=== PATIENT | male | born 1970 | race Caucasian/White ===

== ENCOUNTER 2017-11-17 08:40 | Observation (INO) ==
[2017-11-17 09:13] LABS: ABG Base Excess 18 mEq/L (-2 to 3); ABG HCO3 50 mEq/L (21-27); ABG Oxygen Saturation 88 % (95-98); ABG PCO2 97 mmHg (35-45); ABG PH 7.32 pH Units (7.32-7.45); ABG PO2 64 mmHg (85-104); ABG TCO2 53 mEq/L (20-26)
[2017-11-17 09:31] LABS: Basophils % 0.5 %; Eosinophils % 0.3 %; Hematocrit 43.2 % (37.5-50.1); Hemoglobin 11.8 g/dL (12.9-16.9); Immature Granulocytes % 0.3 % (0-4); Lymphocytes # 0.6 K/mcL (0.6-4.6); Lymphocytes % 9.7 %; Mean Corpuscular HGB Conc 27.3 g/dL (31.6-35.5); Mean Corpuscular Hemoglobin 30.7 pg (28.0-33.3); Mean Corpuscular Volume 112.5 fL (83.0-100.0); Mean Platelet Volume 11.1 fL (9.4-12.4); Monocytes # 0.4 K/mcL (0.0-1.3); Monocytes % 5.5 %; Neutrophils # 5.5 K/mcL (1.6-8.9); Platelet Count 130 K/mcL (140-400); Red Blood Count 3.84 M/mcL (4.19-5.50); Segmented Neutrophils % 83.7 %
[2017-11-17 09:40] LABS: Prothrombin Time 11.4 Seconds (9.4-12.1)
[2017-11-17 09:40] LABS: VBG Base Excess 18 mEq/L; VBG Chloride 96 mEq/L (98-107); VBG Glucose 181 mg/dl (65-95); VBG HCO3 46 mEq/L (21-27); VBG Oxygen Saturation 84 %; VBG PCO2 69 mmHg (41-51); VBG PH 7.43 pH Units (7.32-7.42); VBG PO2 50 mmHg (25-50); VBG Total CO2 48 mEq/L
[2017-11-17 09:43] LABS: Activated Partial Thrombo Time 29.7 Seconds (26.0-36.0)
[2017-11-17 10:02] LABS: Troponin I < 0.03 ng/mL (< 0.04)
[2017-11-17 10:08] LABS: VBG Creatinine 0.62 mg/dL (0.72-1.25)
--- NOTE | 2017-11-17 10:14 | Emergency Department Note ---
Disposition Clinical Impression: Acute exacerbation of chronic obstructive airways disease, Hypoxia Disposition: Admitted As Inpatient Condition: Undetermined Time of Disposition: 11:50 (Dr Hanson accepted him ) SOB HPI - General Chief Complaint: ED Shortness of Breath/Dyspnea Stated Complaint: trach pt, low 02 sat, shortness of breath Source: EMS Mode of arrival: EMS Limitations: no limitations Nursing Notes Reviewed: Yes Vital Signs Reviewed: Yes - History of Present Illness Patient is a pleasant with past medical history significant for HTN, COPD, trach dependent and alcoholic who is presenting to [facility] Emergency Room with a chief complaint off respiratory distress. He was sat at 30% earlier at 7: 30 am ant the SNF per his nurse practitioner and was suctioned and given Duoneb so his sat went up to 80s. He was still i hypoxia. Per SNF he refuses wearing vent at night and actiually declined here in the ER. He has no other symptoms and per SNF there was unremarkable events other than the incidental hypoxia. Patient denies any fever or chills. Pt also denies any eye pain or visual disturbances. There is no sore throat or facial or nasal congestion. There is no chest pain or racing heart. There is no abdominal pain, nausea, vomiting or diarrhea. No dysuria or flank pain. There is no muskulo-skeletal pain, arthralgia or back pain. Patient also denies rash or pruritus. There is no neurological manifestations, no headache, no vertigo or weakness. The patient also denies any depression, hallucinations and there are no homicidal or suicidal ideations. There is no polyuria or polydipsia. There is no easy bruising or bleeding. Review of other systems is otherwise negative except above. Pt Subjective Complaint: shortness of breath Onset (ago): hour(s) Severity: moderate Improves with: oxygen Worsens with: nothing Known history of: COPD Associated symptoms: Reports: denies other symptoms Treatment prior to arrival: oxygen - Related Data Home Medications Medication Instructions Recorded Confirmed Aspirin [Ecotrin] 325 mg PO DAILY 11/17/17 11/17/17 Atorvastatin [Lipitor] 80 mg PO HS 11/17/17 11/17/17 Docusate Sodium [Diocto] 30 mg PO TID 11/17/17 11/17/17 Escitalopram Oxalate 5 mg PO DAILY 11/17/17 11/17/17 Folic Acid 1 mg PO DAILY 11/17/17 11/17/17 Gabapentin [Gralise] 600 mg PO TID 11/17/17 11/17/17 Ipratropium/Albuterol Neb [Duoneb] 3 ml IH Q6HR 11/17/17 11/17/17 Thiamine HCl [Vitamin B-1] 100 mg PO DAILY 11/17/17 11/17/17 Tramadol HCl [Ultram] 50 mg PO TID PRN 11/17/17 11/17/17 Allergies Allergy/AdvReac Type Severity Reaction Status Date / Time No Known Allergies Allergy Verified 11/17/17 08:41 All systems ED: reviewed and negative except as stated. Review of Systems: As Per HPI Constitutional: Denies: fever, chills, weakness Eyes: Denies: eye pain, eye discharge, vision change ENT ED: Denies: ear pain, throat pain, dental pain Cardiovascular: Denies: chest pain, palpitations, dyspnea on exertion Respiratory: Reports: cough, dyspnea Gastrointestinal: Denies: abdominal pain, nausea, vomiting Genitourinary: Denies: urgency, dysuria, frequency Musculoskeletal: Denies: back pain, neck pain, joint swelling Integumentary: Denies: rash, abrasion, lesions Neurological: Denies: headache, weakness, numbness Physical Exam - General Limitations: no limitations, language barrier, other (Wearing trach does not talk but nods his head) General appearance: alert, in distress - Head Head exam: atraumatic, normocephalic, normal inspection - Eye Eye exam: Present: normal appearance, PERRL, EOMI - Expanded Eye Exam Eyelids: bilateral: normal inspection Pupils: Left: reactive Sclera/Conjunctival: bilateral: normal inspection - ENT ENT exam: normal exam, normal oropharynx, mucous membranes moist - Expanded ENT Exam External ear exam: Present: normal external inspection Mouth exam: Present: normal external inspection Teeth exam: Present: normal inspection Throat exam: Present: normal inspection - Neck Neck exam: Present: normal inspection, full ROM, trachea midline, other (Has tracjh in place and retrieved a lot of secretions upon suctioning and Sat improved to 90s but remained fluctuant and retaining CO2) - Chest Chest inspection: Present: normal inspection, symmetric chest wall rise - Respiratory Respiratory exam: Present: normal lung sounds bilaterally, wheezes, other. Absent: prolonged expiratory phase (Scattered rhonchi but otherwise no true infiltraions and relatively CTA) - Cardiovascular Cardiovascular exam: Present: regular rate, normal rhythm, normal heart sounds - Abdominal Exam Abdominal exam: Present: soft, Non-Tender. Absent: tenderness, distention, guarding, rebound, rigidity - Extremities Exam Extremities exam: Present: normal inspection, full ROM. Absent: tenderness, pedal edema - Expanded Upper Extremity Exam Shoulder exam: Present: normal inspection, full ROM Arm exam: Present: normal inspection, full ROM Elbow exam: Present: normal inspection, full ROM Forearm/Wrist exam: Present: normal inspection, full ROM Hand exam: Present: normal inspection, full ROM Vascular exam: Normal: capillary refill, radial pulse - Expanded Lower Extremity Exam Hip/Pelvis exam: Present: normal inspection, full ROM Upper leg exam: Present: normal inspection, full ROM Knee exam: Present: normal inspection, full ROM Lower leg exam: Present: normal inspection, full ROM Ankle exam: Present: normal inspection, full ROM Foot/toe exam: Present: normal inspection, full ROM Neurovascular/Tendon exam: Absent: motor deficit, sensory deficit, tendon deficit - Back Exam Back exam: Present: normal inspection, full ROM. Absent: tenderness - Neurological Exam Neurological exam: Present: alert, oriented X3 - Expanded Neurological Exam Patient oriented to: Present: person, place, time Coma Scale Eye Opening: Spontaneous Coma Scale Motor Response: Obeys Commands Coma Scale Verbal Response: Oriented Coma Scale Total: 15 - Psychiatric Psychiatric exam: Present: normal affect, normal mood - Skin Skin exam: Present: warm, dry, intact, normal color Course Course Narrative: Cardiopulmonary monitoring Stat takes suction Stat ABG STAT DuoNeb STAT Steroids Vital Signs Temperature 97.6 F 11/17/17 08:42 Pulse Rate 77 11/17/17 08:42 Respiratory Rate 20 11/17/17 08:42 Blood Pressure 110/79 11/17/17 08:42 O2 Sat by Pulse Oximetry 60 11/17/17 08:42 Temperature 97.6 F 11/17/17 08:42 Pulse Rate 79 11/17/17 12:48 Respiratory Rate 20 11/17/17 12:48 Blood Pressure 151/73 11/17/17 12:48 O2 Sat by Pulse Oximetry 90 11/17/17 12:48 Oxygen Delivery Oxygen Delivery Trach Mask Shortness of Breath/Dyspnea - Differential Diagnosis Likely: congestive heart failure, pneumonia, asthma with exacerbation, pulmonary embolism - Medical Records Medical records reviewed: Yes I reviewed the patient's medical records. - Lab Data Lab results reviewed: Yes I reviewed the patient's lab results. Result diagrams: 11/17/17 09:20 11/17/17 09:20 Lab Results 11/17/17 11/17/17 11/17/17 Range/Units 09:07 09:20 09:20 WBC 6.6 (4.3-11.1) K/mcL RBC 3.84 L (4.19-5.50) M/mcL Hgb 11.8 L (12.9-16.9) g/dL Hct 43.2 (37.5-50.1) % MCV 112.5 H (83.0-100.0) fL MCH 30.7 (28.0-33.3) pg MCHC 27.3 L (31.6-35.5) g/dL RDW 15.0 H (11.5-14.5) % Plt Count 130 L (140-400) K/mcL MPV 11.1 (9.4-12.4) fL Immature Gran % 0.3 (0-4) % Seg Neutrophils % 83.7 % Lymphocytes % 9.7 % Monocytes % 5.5 % Eosinophils % 0.3 % Basophils % 0.5 % Neutrophils # 5.5 (1.6-8.9) K/mcL Lymphocytes # 0.6 (0.6-4.6) K/mcL Monocytes # 0.4 (0.0-1.3) K/mcL Eosinophils # 0.0 (0.0-0.6) K/mcL Basophils # 0.0 (0.0-0.2) K/mcL Platelet Estimate Normal (Normal) Hypochromasia Present A (Not Present) Anisocytosis 1+ A (Not Present) PT 11.4 (9.4-12.1) Seconds INR 1.0 APTT 29.7 (26.0-36.0) Seconds Sample Site R Radial ABG pH 7.32 (7.32-7.45) pH Units ABG pCO2 97 H* (35-45) mmHg ABG pO2 64 L (85-104) mmHg ABG HCO3 50 H (21-27) mEq/L ABG Total CO2 53 H (20-26) mEq/L ABG O2 Saturation 88 L (95-98) % ABG Base Excess 18 H (-2 to 3) mEq/L Bj Test N/A VBG pH (7.32-7.42) pH Units VBG pCO2 (41-51) mmHg VBG pO2 (25-50) mmHg VBG HCO3 (21-27) mEq/L VBG Total CO2 mEq/L VBG O2 Saturation % VBG Base Excess mEq/L VBG Lactic Acid (0.5-2.2) mmol/L O2 Delivery Device T Collar Inspired O2 4.0 (1-15=lpm [id number]=%) Venous Sodium (135-145) mEq/L Sodium (136-145) mEq/L Venous Potassium (3.5-5.5) mEq/L Potassium (3.5-5.1) mEq/L Venous Chloride (98-107) mEq/L Chloride (98-107) mEq/L Carbon Dioxide (23-29) mEq/L BUN (6-20) mg/dL Creatinine (0.70-1.30) mg/dL Venous Creatinine (0.72-1.25) mg/dL Est GFR ( Amer) (> 60) Est GFR (Non-Af Amer) (> 60) BUN/Creatinine Ratio (6-26) Glucose (70-105) mg/dL Whole Bld Glucose (65-95) mg/dL Calculated Osmolality (280-300) Calcium (8.6-10.3) mg/dL Troponin I (< 0.04) ng/mL B-Natriuretic Peptide (Less than 100) pg/mL Person Notif of Syd Guzman RN 11/17/17 11/17/17 11/17/17 Range/Units 09:20 09:20 09:36 WBC (4.3-11.1) K/mcL RBC (4.19-5.50) M/mcL Hgb (12.9-16.9) g/dL Hct (37.5-50.1) % MCV (83.0-100.0) fL MCH (28.0-33.3) pg MCHC (31.6-35.5) g/dL RDW (11.5-14.5) % Plt Count (140-400) K/mcL MPV (9.4-12.4) fL Immature Gran % (0-4) % Seg Neutrophils % % Lymphocytes % % Monocytes % % Eosinophils % % Basophils % % Neutrophils # (1.6-8.9) K/mcL Lymphocytes # (0.6-4.6) K/mcL Monocytes # (0.0-1.3) K/mcL Eosinophils # (0.0-0.6) K/mcL Basophils # (0.0-0.2) K/mcL Platelet Estimate (Normal) Hypochromasia (Not Present) Anisocytosis (Not Present) PT (9.4-12.1) Seconds INR APTT (26.0-36.0) Seconds Sample Site ABG pH (7.32-7.45) pH Units ABG pCO2 (35-45) mmHg ABG pO2 (85-104) mmHg ABG HCO3 (21-27) mEq/L ABG Total CO2 (20-26) mEq/L ABG O2 Saturation (95-98) % ABG Base Excess (-2 to 3) mEq/L Bj Test VBG pH 7.43 H (7.32-7.42) pH Units VBG pCO2 69 H (41-51) mmHg VBG pO2 50 (25-50) mmHg VBG HCO3 46 H (21-27) mEq/L VBG Total CO2 48 mEq/L VBG O2 Saturation 84 % VBG Base Excess 18 mEq/L VBG Lactic Acid 3.5 H (0.5-2.2) mmol/L O2 Delivery Device Inspired O2 (1-15=lpm [id number]=%) Venous Sodium 151 H 151 H (135-145) mEq/L Sodium 147 H (136-145) mEq/L Venous Potassium 4.1 4.1 (3.5-5.5) mEq/L Potassium 3.8 (3.5-5.1) mEq/L Venous Chloride 96 L 96 L (98-107) mEq/L Chloride 96 L (98-107) mEq/L Carbon Dioxide 42 H* (23-29) mEq/L BUN 11 (6-20) mg/dL Creatinine 0.50 L (0.70-1.30) mg/dL Venous Creatinine 0.62 L (0.72-1.25) mg/dL Est GFR ( Amer) > 60 (> 60) Est GFR (Non-Af Amer) > 60 (> 60) BUN/Creatinine Ratio 22 (6-26) Glucose 169 H (70-105) mg/dL Whole Bld Glucose 181 H 181 H (65-95) mg/dL Calculated Osmolality 307 H (280-300) Calcium 10.1 (8.6-10.3) mg/dL Troponin I < 0.03 (< 0.04) ng/mL B-Natriuretic Peptide (Less than 100) pg/mL Person Notif of Crit 11/17/17 Range/Units 10:00 WBC (4.3-11.1) K/mcL RBC (4.19-5.50) M/mcL Hgb (12.9-16.9) g/dL Hct (37.5-50.1) % MCV (83.0-100.0) fL MCH (28.0-33.3) pg MCHC (31.6-35.5) g/dL RDW (11.5-14.5) % Plt Count (140-400) K/mcL MPV (9.4-12.4) fL Immature Gran % (0-4) % Seg Neutrophils % % Lymphocytes % % Monocytes % % Eosinophils % % Basophils % % Neutrophils # (1.6-8.9) K/mcL Lymphocytes # (0.6-4.6) K/mcL Monocytes # (0.0-1.3) K/mcL Eosinophils # (0.0-0.6) K/mcL Basophils # (0.0-0.2) K/mcL Platelet Estimate (Normal) Hypochromasia (Not Present) Anisocytosis (Not Present) PT (9.4-12.1) Seconds INR APTT (26.0-36.0) Seconds Sample Site ABG pH (7.32-7.45) pH Units ABG pCO2 (35-45) mmHg ABG pO2 (85-104) mmHg ABG HCO3 (21-27) mEq/L ABG Total CO2 (20-26) mEq/L ABG O2 Saturation (95-98) % ABG Base Excess (-2 to 3) mEq/L Bj Test VBG pH (7.32-7.42) pH Units VBG pCO2 (41-51) mmHg VBG pO2 (25-50) mmHg VBG HCO3 (21-27) mEq/L VBG Total CO2 mEq/L VBG O2 Saturation % VBG Base Excess mEq/L VBG Lactic Acid (0.5-2.2) mmol/L O2 Delivery Device Inspired O2 (1-15=lpm [id number]=%) Venous Sodium (135-145) mEq/L Sodium (136-145) mEq/L Venous Potassium (3.5-5.5) mEq/L Potassium (3.5-5.1) mEq/L Venous Chloride (98-107) mEq/L Chloride (98-107) mEq/L Carbon Dioxide (23-29) mEq/L BUN (6-20) mg/dL Creatinine (0.70-1.30) mg/dL Venous Creatinine (0.72-1.25) mg/dL Est GFR ( Amer) (> 60) Est GFR (Non-Af Amer) (> 60) BUN/Creatinine Ratio (6-26) Glucose (70-105) mg/dL Whole Bld Glucose (65-95) mg/dL Calculated Osmolality (280-300) Calcium (8.6-10.3) mg/dL Troponin I (< 0.04) ng/mL B-Natriuretic Peptide 126 H (Less than 100) pg/mL Person Notif of Crit - Radiology Data Radiology results reviewed: Yes I reviewed the patient's radiology results. - EKG Data EKG attestation: Yes I reviewed and interpreted this EKG. EKG shows normal: Reports: sinus rhythm Rhythm: Reports: NSR
[2017-11-17 10:18] LABS: Anisocytosis 1+ (Not Present); Hypochromasia Present (Not Present); Platelet Estimate Normal (Normal)
[2017-11-17] MEDS ORDERED: Ipratropium/Albuterol Neb 3 ML IH ONE (10:22)
[2017-11-17] MEDS ORDERED: methylPREDNISolone 125 MG/2 ML VIAL IVP ONE (10:22)
[2017-11-17 10:57] LABS: BUN/Creatinine Ratio 22 (6-26); Blood Urea Nitrogen 11 mg/dL (6-20); Calcium 10.1 mg/dL (8.6-10.3); Carbon Dioxide 42 mEq/L (23-29); Chloride 96 mEq/L (98-107); Glucose 169 mg/dL (70-105); Osmolality,Calculated 307 (280-300); Potassium 3.8 mEq/L (3.5-5.1); Sodium 147 mEq/L (136-145); eGFR For African Americans > 60 (> 60); eGFR For Non-African Americans > 60 (> 60)
[2017-11-17] MEDS ORDERED: Acetaminophen 325 MG TABLET PO PRN ×2 (12:29→13:10)
[2017-11-17] MEDS ORDERED: Naloxone 0.4 MG/ML INJ IVP PRN ×2 (12:29→13:10)
[2017-11-17] MEDS ORDERED: Gabapentin 300 MG CAPSULE PO SCH (15:00)
[2017-11-17] MEDS ORDERED: Ipratropium/Albuterol Neb 3 ML IH SCH (16:00)
--- NOTE | 2017-11-17 16:53 | Internal Med History&Physical ---
Date of Encounter: 11/17/17 Time of Encounter: 16:30 Assessment and Plan (1) Acute exacerbation of chronic obstructive airways disease Current visit: Yes Status: Acute He was given Solu-Medrol in emergency room. Will order Rocephin and Zithromax with lactobacillus. Recheck labs in a.m. (2) Hypoxia Current visit: Yes Status: Acute Continue oxygen and nebulizer treatments. (3) Macrocytic anemia Current visit: Yes Status: Acute Will order workup in a.m. (4) Hyperlipidemia Current visit: Yes Status: Acute Continue Lipitor Qualifiers: Hyperlipidemia type: unspecified Qualified Code(s): E78.5 - Hyperlipidemia , unspecified (5) Edema Current visit: Yes Status: Acute Will decrease dose of Neurontin and prescribe Bumex. 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 Stanton is a 47 year old male was transferred from [facility] [place] after he was found to have hypoxemia and dyspnea. He was evaluated in emergency room and felt to have exacerbation of COPD. ABG showed acute on chronic elevation of PCO2. ER records report patient refuses to use ventilator at night time. He was admitted to [facility] floor for ongoing care needs. He has history of alcoholism and cannot give any reliable history. He does not know his age, length of stay at SNF, or duration of tracheostomy. Past Med Surg Social Fam HX - Past Medical History Medical history: COPD, hyperlipidemia, hypertension Additional medical history: resp failure. anemia. etoh abuse Psychiatric history: depression - Social History Smoking Status: Former smoker Drug use: unknown Internal Medicine - H&P: Meds Aspirin [Ecotrin] 325 mg PO DAILY 11/17/17 [History] Atorvastatin [Lipitor] 80 mg PO HS 11/17/17 [History] Docusate Sodium [Diocto] 30 mg PO TID 11/17/17 [History] Escitalopram Oxalate 5 mg PO DAILY 11/17/17 [History] Folic Acid 1 mg PO DAILY 11/17/17 [History] Gabapentin [Gralise] 600 mg PO TID 11/17/17 [History] Ipratropium/Albuterol Neb [Duoneb] 3 ml IH Q6HR 11/17/17 [History] Thiamine HCl [Vitamin B-1] 100 mg PO DAILY 11/17/17 [History] Tramadol HCl [Ultram] 50 mg PO TID PRN 11/17/17 [History] 3 Allergy/AdvReac Type Severity Reaction Status Date / Time No Known Allergies Allergy Verified 11/17/17 08:41 All Systems PM: A 10-system review of systems was performed and is negative for pertinent findings except as documented above in the HPI. Review of systems: Unobtainable from patient. - Constitutional Vitals: Temp Pulse Resp BP Pulse Ox 97.6 F 79 20 151/73 94 11/17/17 08:42 11/17/17 12:48 11/17/17 12:48 11/17/17 12:48 11/17/17 14:56 Exam: Gen.: He is a well-developed pale male lying in bed who appears in mild respiratory distress intermittently. He coughs occasionally during examination. HEENT: Head is atraumatic and normal cephalic. Eyes: EOMI. There is no scleral icterus. Mouth: Mucosa is moist. Neck: Supple and nontender. There is no thyromegaly or adenopathy noted. Tracheostomy is in place in the lower anterior neck area with oxygen mask covering the trach site. Heart: Regular without murmurs gallops or ectopics Lungs: He has few scattered rhonchi and upper airway secretions. Abdomen: Soft and nontender. No masses or guarding are noted. Extremities: He has 2+ edema of the dorsum of feet and lower anterior terrell bilaterally. Dorsalis pedis and posttibial pulses are not palpable. Neurologic: Mental status: He cannot phonate because of tracheostomy in place. He does not know answers to most questions I asked. He follows a few commands. Cranial nerves: Facial movements are symmetric. Forehead wrinkles bilaterally. Tongue protrudes midline. EOMI. Motor: He moves his arms well to random observation. No further neurologic testing is attempted. Skin: Warm and dry Internal Med - H&P Results - Labs CBC & Chem 7: 11/17/17 09:20 11/17/17 09:20
[2017-11-17] MEDS ORDERED: Albuterol 2.5 MG/3 ML NEBULIZER IH PRN (17:03)
[2017-11-17] MEDS ORDERED: cefTRIAXone 1,000 MG in Water for inj. (sterile) 20 ML 10 ML IVP SCH (18:00)
[2017-11-17] MEDS ORDERED: cefTRIAXone 1,000 MG in 0.9 % Sodium Chloride Mini Bag 100 ML IVPB SCH (18:00)
[2017-11-17] MEDS ORDERED: Azithromycin 500 MG in D5% in Water 250 ML IVPB SCH ×2 (18:00→22:00)
[2017-11-17] MEDS: Bumetanide 1 MG/4 ML VIAL IVP SCH (18:03)
[2017-11-17] MEDS: Lactobacillus 1 EACH CAP.SPRINK PO SCH (22:45)
[2017-11-17] MEDS: Gabapentin 400 MG CAPSULE PO SCH (22:45)
[2017-11-18 06:33] VITALS: BP 126/83
--- NOTE | 2017-11-18 07:03 | Electrocardiograph Report ---
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
[2017-11-18 07:25] LABS: Basophils % 0.1 %; Eosinophils % 0.1 %; Hematocrit 38.3 % (37.5-50.1); Hemoglobin 10.9 g/dL (12.9-16.9); Immature Granulocytes % 0.6 % (0-4); Lymphocytes # 1.6 K/mcL (0.6-4.6); Lymphocytes % 20.5 %; Mean Corpuscular HGB Conc 28.5 g/dL (31.6-35.5); Mean Corpuscular Hemoglobin 30.6 pg (28.0-33.3); Mean Corpuscular Volume 107.6 fL (83.0-100.0); Monocytes # 0.7 K/mcL (0.0-1.3); Monocytes % 8.6 %; Neutrophils # 5.5 K/mcL (1.6-8.9); Nucleated Red Blood Cells 0.4 /100 WBC (0); Platelet Count 190 K/mcL (140-400); Red Blood Count 3.56 M/mcL (4.19-5.50); Red Cell Distribution Width 15.2 % (11.5-14.5); Segmented Neutrophils % 70.1 %
[2017-11-18] MEDS: Bumetanide 1 MG/4 ML VIAL IVP SCH (08:11)
[2017-11-18 08:24] LABS: Alanine Aminotransferase 17 Units/L (7-52); Albumin 3.5 g/dL (3.5-5.7); Alkaline Phosphatase 79 Units/L (34-104); Aspartate Amino Transferase 19 Units/L (13-39); BUN/Creatinine Ratio 23 (6-26); Bilirubin,Total 0.4 mg/dL (0.3-1.0); Blood Urea Nitrogen 11 mg/dL (6-20); Calcium 9.8 mg/dL (8.6-10.3); Carbon Dioxide > 45 mEq/L (23-29); Chloride 95 mEq/L (98-107); Globulin 3.5 g/dL (2.4-3.5); Glucose 139 mg/dL (70-105); Osmolality,Calculated 306 (280-300); Potassium 3.8 mEq/L (3.5-5.1); Sodium 147 mEq/L (136-145); Thyroid Stimulating Hormone 0.566 mcIU/mL (0.340-5.600); eGFR For African Americans > 60 (> 60); eGFR For Non-African Americans > 60 (> 60)
[2017-11-18 08:43] LABS: Hypochromasia Present (Not Present)
[2017-11-18] MEDS ORDERED: Aspirin Enteric Coated 325 MG Tablet PO SCH (09:00)
[2017-11-18] MEDS ORDERED: Thiamine (B-1) 100 MG TABLET PO SCH (09:00)
[2017-11-18] MEDS ORDERED: Folic Acid 1 MG TABLET PO SCH (09:00)
[2017-11-18] MEDS ORDERED: Aspirin 81 MG TAB.CHEW PO SCH (09:00)
[2017-11-18 10:37] LABS: % Iron Saturation 11 % (20-55); Ferritin 82 ng/mL (20-250); Iron 43 mcg/dL (65-175); Transferrin 274 mg/dL (203-362)
--- NOTE | 2017-11-18 11:22 | Discharge Summary ---
Orders not resulted at time of discharge: Pending orders 11/18/17 07:17 Folate AM 0400 Vitamin B12 AM 0400 Date of Encounter: 11/18/17 Time of Encounter: 11:05 - Discharge Diagnosis (1) Acute exacerbation of chronic obstructive airways disease Priority: Primary Status: Acute (2) Hypoxia Priority: Secondary Status: Acute (3) Macrocytic anemia Priority: Secondary Status: Acute (4) Hyperlipidemia Priority: Secondary Status: Acute Qualifiers: Hyperlipidemia type: unspecified Qualified Code(s): E78.5 - Hyperlipidemia , unspecified (5) Edema Priority: Secondary Status: Acute Qualifiers: Edema type: unspecified Qualified Code(s): R60.9 - Edema, unspecified Hospital course: Mr. Stanton is a 47 year old male who was transferred from [facility] [place] after he was found to have hypoxemia and dyspnea. He was evaluated in emergency room and felt to have exacerbation of COPD. ABG showed acute on chronic elevation of PCO2. ER records report patient refuses to use ventilator at night time. He was admitted to [facility] for ongoing care needs. Initial orders were written by the emergency room physician. I saw him on November 17 and performed the history and physical. He was given Rocephin and Zithromax with lactobacillus and Solu-Medrol. He remained afebrile during his hospital stay. When I saw him on November 18 he appeared to be in no acute distress. Follow -up lab work showed WBC remaining normal with resolution of left shift on differential. He will be discharged back to the SNF and continue with antibiotic and probiotic for 3 additional days. Oxygen level could not be continuously monitored since patient would not leave equipment in place. Aspirin dose was decreased to 81 mg daily. Anemia testing showed iron 43, transferrin saturation 11%, transferrin 274, and ferritin 82. B12 and folate levels are pending at time of discharge. Neurontin was decreased to lessen edema. Bumex was given and there was improvement in edema by day of discharge. He will remain on this regimen at discharge. On November 18 he was stable for discharge back to [facility] [place]. - Time Spent with Patient Total time spent providing and/or coordinating discharge services: - Discharge Medications Prescriptions: Cefuroxime PO [Ceftin] 500 mg PO Q12HR 3 Days tablet Azithromycin [Zithromax] 250 mg PO DAILY 3 Days tablet Bumetanide [Bumex] 0.5 mg PO DAILY 365 Days tablet Gabapentin [Neurontin] 400 mg PO TID 30 Days #90 capsule Lactobacillus [Culturelle] 1 each PO BID 3 Days cap.sprink Home Medications: Atorvastatin [Lipitor] 80 mg PO HS 11/17/17 [History] Docusate Sodium [Diocto] 30 mg PO TID 11/17/17 [History] Escitalopram Oxalate 5 mg PO DAILY 11/17/17 [History] Folic Acid 1 mg PO DAILY 11/17/17 [History] Ipratropium/Albuterol Neb [Duoneb] 3 ml IH Q6HR 11/17/17 [History] Tramadol HCl [Ultram] 50 mg PO TID PRN 11/17/17 [History] Aspirin 81 mg PO DAILY tab.chew 11/18/17 [Rx] Azithromycin [Zithromax] 250 mg PO DAILY 3 Days tablet 11/18/17 [Rx] Bumetanide [Bumex] 0.5 mg PO DAILY 365 Days tablet 11/18/17 [Rx] Cefuroxime PO [Ceftin] 500 mg PO Q12HR 3 Days tablet 11/18/17 [Rx] Gabapentin [Neurontin] 400 mg PO TID 30 Days #90 capsule 11/18/17 [Rx] Lactobacillus [Culturelle] 1 each PO BID 3 Days cap.sprink 11/18/17 [Rx] Allergies/Adverse Reactions: 3 Allergy/AdvReac Type Severity Reaction Status Date / Time No Known Allergies Allergy Verified 11/17/17 08:41 Date of admission: 11/17/17 12:37 Primary care physician: Trino Thomas MD - Constitutional Vitals: Temp Pulse Resp BP Pulse Ox 98.6 F 101 18 126/83 98 11/18/17 06:31 11/18/17 06:31 11/18/17 06:31 11/18/17 06:31 11/18/17 06:31 - Patient Status Disposition: Transfer SNF Condition: Undetermined - Discharge Instructions Follow Up With: Trino Thomas MD [Primary Care Provider] - 1 week - Diet and Activity Activity: resume usual activities as tolerated Diet: advance to your usual diet
--- NOTE | 2017-11-18 11:30 | Physician Discharge Referral ---
ExtendedCare Referral Info Transfer To: [facility] Provider in Charge: Valentin Provider in Charge after Transfer: PCP (Trino Thomas M.D.) - Diagnosis (1) Acute exacerbation of chronic obstructive airways disease Priority: Primary Status: Acute (2) Hypoxia Priority: Secondary Status: Acute (3) Macrocytic anemia Priority: Secondary Status: Acute (4) Hyperlipidemia Priority: Secondary Status: Acute (5) Edema Priority: Secondary Status: Acute Prognosis: Fair - Transfer Medications Prescriptions: Cefuroxime PO [Ceftin] 500 mg PO Q12HR 3 Days tablet Azithromycin [Zithromax] 250 mg PO DAILY 3 Days tablet Bumetanide [Bumex] 0.5 mg PO DAILY 365 Days tablet Gabapentin [Neurontin] 400 mg PO TID 30 Days #90 capsule Lactobacillus [Culturelle] 1 each PO BID 3 Days cap.sprink Home Medications: Atorvastatin [Lipitor] 80 mg PO HS 11/17/17 [History] Docusate Sodium [Diocto] 30 mg PO TID 11/17/17 [History] Escitalopram Oxalate 5 mg PO DAILY 11/17/17 [History] Folic Acid 1 mg PO DAILY 11/17/17 [History] Ipratropium/Albuterol Neb [Duoneb] 3 ml IH Q6HR 11/17/17 [History] Tramadol HCl [Ultram] 50 mg PO TID PRN 11/17/17 [History] Aspirin 81 mg PO DAILY tab.chew 11/18/17 [Rx] Azithromycin [Zithromax] 250 mg PO DAILY 3 Days tablet 11/18/17 [Rx] Bumetanide [Bumex] 0.5 mg PO DAILY 365 Days tablet 11/18/17 [Rx] Cefuroxime PO [Ceftin] 500 mg PO Q12HR 3 Days tablet 11/18/17 [Rx] Gabapentin [Neurontin] 400 mg PO TID 30 Days #90 capsule 11/18/17 [Rx] Lactobacillus [Culturelle] 1 each PO BID 3 Days cap.sprink 11/18/17 [Rx] Allergies/Adverse Reactions: 3 Allergy/AdvReac Type Severity Reaction Status Date / Time No Known Allergies Allergy Verified 11/17/17 08:41 - Respiratory Orders Oxygen / L per min (Oxygen by trach mask to keep saturation greater than 90%.) Smoking Cessation: Smoking cessation has been advised. For more information, call the [place] Tobacco Quit Line at 2-371-TRYP-NOW. - Lab Orders Lab Orders: Other (include drug levels w/frequency) (CBC with differential, BMP , BNP peptide, magnesium level in 5 days) - Rehabiliation Orders Rehab Potential: Poor Rehab Orders: Evaluation for Physical Therapy, Evaluation for Occupational Therapy CERTIFICATION: I certify that the transfer of the above named patient to an Extended Care Facility is necessary for the continuing treatment of the diagnosis listed. The above information is true and accurate reflection of patient's current condition. Confidential - Redisclosure prohibited without a patient's written consent.
[2017-11-18] MEDS: Lactobacillus 1 EACH CAP.SPRINK PO SCH (12:16)
[2017-11-18] MEDS: Gabapentin 400 MG CAPSULE PO SCH (12:16)
[2017-11-18 15:11] LABS: Vitamin B12 284 pg/mL (250-1100)
[2017-11-18 15:14] LABS: Folate > 22.3 ng/mL (3.0-16.0)
== END 2017-11-18 13:23 ==
LOC: EMEROOPIK 08:40 → INPPIK 08:40
PROVIDERS: ADMIT Internal Medicine; ATTEND Internal Medicine

== ENCOUNTER 2017-12-05 21:09 | Inpatient (IN) ==
--- NOTE | 2017-12-05 22:10 | Emergency Department Note ---
Disposition Clinical Impression: Hypoxia, Hypercapnia Edema Qualifiers: Edema type: unspecified Qualified Code(s): R60.9 - Edema, unspecified Disposition: Admitted As Inpatient Condition: Good SOB HPI - General Chief Complaint: ED Shortness of Breath/Dyspnea Stated Complaint: difficulty breathing Time Seen by Provider: 12/05/17 21:20 Source: EMS, other (ECF report) Mode of arrival: EMS Limitations: altered mental status Nursing Notes Reviewed: Yes Vital Signs Reviewed: Yes - History of Present Illness Patient presents the ED from local ECF with report of difficulty breathing and low oxygen saturations. Per ECF report patient who has a tracheostomy tube and is normally on trach mask during the day and ventilator at night was found around 8:30 PM with his trach mask off, decreased responsiveness and initial oxygen saturations of 67%. The ECF staff assisted respirations with a BVM and oxygen with saturations improving into the 90s per EMS during transport. Patient responds to physical stimuli but is still lethargic on arrival. No other information was provided by ECF other than patient frequently refuses to be on the ventilator at night. Patient has history of acute on chronic respiratory failure resulting in his trach and oxygen requirements. - Related Data Home Medications Medication Instructions Recorded Confirmed Atorvastatin [Lipitor] 80 mg PO HS 11/17/17 12/05/17 Escitalopram Oxalate 5 mg PO DAILY 11/17/17 12/05/17 Folic Acid 1 mg PO DAILY 11/17/17 12/05/17 Ipratropium/Albuterol Neb [Duoneb] 3 ml IH Q6HR 11/17/17 11/29/17 Tramadol HCl [Ultram] 50 mg PO TID PRN 11/17/17 12/05/17 Docusate [Colace] 100 mg PO TID 12/05/17 12/05/17 Guar Gum [Nutrisource Fiber] 205 gm PO TID 12/05/17 12/05/17 Multivit-Min/Iron Fum/Folic AC 1 each PO DAILY 12/05/17 12/05/17 [Fmqae-Obsgwyw-Yxxdegoc Tablet] Scopolamine Patch [Transderm-Scop] 1.5 mg TD Q72H 12/05/17 12/05/17 Sennosides [Senna] 8.6 mg PO TID 12/05/17 12/05/17 Previous Rx's Medication Instructions Recorded Aspirin 81 mg PO DAILY tab.chew 11/18/17 Bumetanide [Bumex] 0.5 mg PO DAILY 365 Days tablet 11/18/17 Gabapentin [Neurontin] 400 mg PO TID 30 Days #90 capsule 11/18/17 Lactobacillus [Culturelle] 1 each PO BID 3 Days cap.sprink 11/18/17 Allergies Allergy/AdvReac Type Severity Reaction Status Date / Time No Known Allergies Allergy Verified 12/05/17 21:39 Limitations: ROS unobtainable due to patients medical condition Past Medical History - Past Medical History Medical history: Reports: COPD, GERD, hyperlipidemia, hypertension Psychiatric history: Reports: depression - Social History Smoking Status: Former smoker Alcohol use: Reports: unknown Drug use: Reports: unknown Physical Exam - General Limitations: altered mental status General appearance: lethargic - Head Head exam: normocephalic - Expanded Head Exam Head exam physicial: Present: contusion (R periorbital area), hematoma (R forehead) - Eye Eye exam: Present: normal appearance, PERRL, EOMI - ENT ENT exam: normal exam, normal oropharynx, mucous membranes dry - Neck Neck exam: Present: normal inspection, full ROM, trachea midline - Chest Chest inspection: Present: normal inspection, symmetric chest wall rise - Respiratory Respiratory exam: Present: normal lung sounds bilaterally - Cardiovascular Cardiovascular exam: Present: regular rate, normal rhythm, normal heart sounds - Abdominal Exam Abdominal exam: Present: soft, Non-Tender. Absent: tenderness, distention, guarding, rebound, rigidity - Extremities Exam Extremities exam: Present: normal inspection, full ROM, pedal edema (1-2+). Absent: tenderness - Back Exam Back exam: Present: normal inspection, full ROM. Absent: tenderness - Skin Skin exam: Present: warm, dry, intact, normal color Course Course Narrative: Patient presents to the ED with dyspnea and decreased oxygen saturations after being found with a straight collar off. Patient's oxygen saturations had improved with high flow O2 and BVM respirations during transport. Lungs are clear to auscultation on arrival. Trach was suctioned by respiratory staff without any secretions found. He was placed temporarily on the vent but kept pulling the tubing away. Will attempt to wean back to trach collar and obtain chest x-ray for further evaluation. - Reevaluation(s) Reevaluation #1: Patient's oxygen saturations dropped back 80s while on trach collar and he was placed back on the ventilator. ABG was obtained which showed both hypoxia and hypercapnia but a normal pH. EKG showed A. fib with occasional PVCs. Chest x- ray showed edema versus less likely infiltrate. Patient has known history of A. fib. Given this will check labs including BNP and troponin. Reevaluation #2: Patient's mentation improved while being on the ventilator. He denies any complaints. Repeat ABG shows improvement in his PO2 and PCO2 after adjustments were made to the ventilator including an increase in his PEEP and respiratory rate. Laboratory studies show a slightly elevated troponin. Patient has no chest pain. BNP is not elevated despite patient's visible edema. He was given a dose of Lasix. He will require admission for further treatment and monitoring. I spoke to the hospitalist on-call, Dr. Hanson, who has accepted the patient. Vital Signs Temperature 97.8 F 12/05/17 21:09 Pulse Rate 98 12/05/17 21:09 Respiratory Rate 14 12/05/17 21:09 Blood Pressure 141/43 12/05/17 21:09 O2 Sat by Pulse Oximetry 96 12/05/17 21:09 Temperature 97.8 F 12/05/17 21:09 Pulse Rate 68 12/06/17 01:36 Respiratory Rate 15 12/06/17 01:36 Blood Pressure 93/70 12/06/17 01:36 O2 Sat by Pulse Oximetry 99 12/06/17 01:36 Oxygen Delivery Oxygen Delivery Ventilator Shortness of Breath/Dyspnea - Differential Diagnosis Likely: acute exacerbation of chronic obstructive airways disease, congestive heart failure, pneumonia - Medical Records Medical records reviewed: Yes I reviewed the patient's medical records. - Lab Data Result diagrams: 12/05/17 23:10 12/05/17 23:10 Lab Results 12/05/17 12/05/17 12/05/17 Range/Units 23:00 23:10 23:10 WBC 10.8 (4.3-11.1) K/mcL RBC 4.20 (4.19-5.50) M/mcL Hgb 12.9 (12.9-16.9) g/dL Hct 44.6 (37.5-50.1) % MCV 106.2 H D (83.0-100.0) fL MCH 30.7 (28.0-33.3) pg MCHC 28.9 L (31.6-35.5) g/dL RDW 15.3 H (11.5-14.5) % Plt Count 216 (140-400) K/mcL MPV 10.6 (9.4-12.4) fL Immature Gran % 0.5 (0-4) % Seg Neutrophils % 78.0 % Lymphocytes % 15.2 % Monocytes % 5.4 % Eosinophils % 0.7 % Basophils % 0.2 % Neutrophils # 8.4 (1.6-8.9) K/mcL Lymphocytes # 1.6 (0.6-4.6) K/mcL Monocytes # 0.6 (0.0-1.3) K/mcL Eosinophils # 0.1 (0.0-0.6) K/mcL Basophils # 0.0 (0.0-0.2) K/mcL Platelet Estimate Normal (Normal) Large Platelets Present A (Not Present) Polychromasia 1+ A (Not Present) Hypochromasia Present A (Not Present) Basophilic Stippling 1+ A (Not Present) Anisocytosis 2+ A (Not Present) Macrocytosis Present A (Not Present) Stomatocytes 1+ A (Not Present) PT 10.5 (9.4-12.1) Seconds INR 0.9 Sample Site L Brach ABG pH 7.34 (7.32-7.45) pH Units ABG pCO2 78 H* (35-45) mmHg ABG pO2 62 L (85-104) mmHg ABG HCO3 42 H (21-27) mEq/L ABG Total CO2 44 H (20-26) mEq/L ABG O2 Saturation 88 L (95-98) % ABG Base Excess 11 H (-2 to 3) mEq/L Respiration Rate 12 O2 Delivery Device Adult Vent Blood Gas Modality ASSIST CONTROL Inspired O2 40.0 (1-15=lpm cc58-145=%) Tidal Volume 500 cc PEEP 5 cm H2O Sodium (136-145) mEq/L Potassium (3.5-5.1) mEq/L Chloride (98-107) mEq/L Carbon Dioxide (23-29) mEq/L BUN (6-20) mg/dL Creatinine (0.70-1.30) mg/dL Est GFR ( Amer) (> 60) Est GFR (Non-Af Amer) (> 60) BUN/Creatinine Ratio (6-26) Glucose (70-105) mg/dL Calculated Osmolality (280-300) Lactic Acid (0.5-2.2) mmol/L Calcium (8.6-10.3) mg/dL Troponin I (< 0.04) ng/mL B-Natriuretic Peptide (Less than 100) pg/mL Person Notif of Syd flannery rn 12/05/17 12/05/17 12/05/17 Range/Units 23:10 23:10 23:10 WBC (4.3-11.1) K/mcL RBC (4.19-5.50) M/mcL Hgb (12.9-16.9) g/dL Hct (37.5-50.1) % MCV (83.0-100.0) fL MCH (28.0-33.3) pg MCHC (31.6-35.5) g/dL RDW (11.5-14.5) % Plt Count (140-400) K/mcL MPV (9.4-12.4) fL Immature Gran % (0-4) % Seg Neutrophils % % Lymphocytes % % Monocytes % % Eosinophils % % Basophils % % Neutrophils # (1.6-8.9) K/mcL Lymphocytes # (0.6-4.6) K/mcL Monocytes # (0.0-1.3) K/mcL Eosinophils # (0.0-0.6) K/mcL Basophils # (0.0-0.2) K/mcL Platelet Estimate (Normal) Large Platelets (Not Present) Polychromasia (Not Present) Hypochromasia (Not Present) Basophilic Stippling (Not Present) Anisocytosis (Not Present) Macrocytosis (Not Present) Stomatocytes (Not Present) PT (9.4-12.1) Seconds INR Sample Site ABG pH (7.32-7.45) pH Units ABG pCO2 (35-45) mmHg ABG pO2 (85-104) mmHg ABG HCO3 (21-27) mEq/L ABG Total CO2 (20-26) mEq/L ABG O2 Saturation (95-98) % ABG Base Excess (-2 to 3) mEq/L Respiration Rate O2 Delivery Device Blood Gas Modality Inspired O2 (1-15=lpm ej25-678=%) Tidal Volume cc PEEP cm H2O Sodium 141 (136-145) mEq/L Potassium 4.6 (3.5-5.1) mEq/L Chloride 95 L (98-107) mEq/L Carbon Dioxide 41 H* (23-29) mEq/L BUN 14 (6-20) mg/dL Creatinine 1.00 (0.70-1.30) mg/dL Est GFR ( Amer) > 60 (> 60) Est GFR (Non-Af Amer) > 60 (> 60) BUN/Creatinine Ratio 14 (6-26) Glucose 152 H (70-105) mg/dL Calculated Osmolality 295 (280-300) Lactic Acid 1.9 (0.5-2.2) mmol/L Calcium 10.1 (8.6-10.3) mg/dL Troponin I 0.04 H* (< 0.04) ng/mL B-Natriuretic Peptide 38 (Less than 100) pg/mL Person Notif of Crit 12/06/17 Range/Units 00:43 WBC (4.3-11.1) K/mcL RBC (4.19-5.50) M/mcL Hgb (12.9-16.9) g/dL Hct (37.5-50.1) % MCV (83.0-100.0) fL MCH (28.0-33.3) pg MCHC (31.6-35.5) g/dL RDW (11.5-14.5) % Plt Count (140-400) K/mcL MPV (9.4-12.4) fL Immature Gran % (0-4) % Seg Neutrophils % % Lymphocytes % % Monocytes % % Eosinophils % % Basophils % % Neutrophils # (1.6-8.9) K/mcL Lymphocytes # (0.6-4.6) K/mcL Monocytes # (0.0-1.3) K/mcL Eosinophils # (0.0-0.6) K/mcL Basophils # (0.0-0.2) K/mcL Platelet Estimate (Normal) Large Platelets (Not Present) Polychromasia (Not Present) Hypochromasia (Not Present) Basophilic Stippling (Not Present) Anisocytosis (Not Present) Macrocytosis (Not Present) Stomatocytes (Not Present) PT (9.4-12.1) Seconds INR Sample Site L Brach ABG pH 7.46 H D (7.32-7.45) pH Units ABG pCO2 52 H D (35-45) mmHg ABG pO2 101 (85-104) mmHg ABG HCO3 37 H (21-27) mEq/L ABG Total CO2 38 H (20-26) mEq/L ABG O2 Saturation 98 (95-98) % ABG Base Excess 11 H (-2 to 3) mEq/L Respiration Rate 16 O2 Delivery Device Adult Vent Blood Gas Modality ASSIST CONTROL Inspired O2 40.0 (1-15=lpm wv74-058=%) Tidal Volume 500 cc PEEP 10 cm H2O Sodium (136-145) mEq/L Potassium (3.5-5.1) mEq/L Chloride (98-107) mEq/L Carbon Dioxide (23-29) mEq/L BUN (6-20) mg/dL Creatinine (0.70-1.30) mg/dL Est GFR ( Amer) (> 60) Est GFR (Non-Af Amer) (> 60) BUN/Creatinine Ratio (6-26) Glucose (70-105) mg/dL Calculated Osmolality (280-300) Lactic Acid (0.5-2.2) mmol/L Calcium (8.6-10.3) mg/dL Troponin I (< 0.04) ng/mL B-Natriuretic Peptide (Less than 100) pg/mL Person Notif of Crit - Radiology Data Radiology results reviewed: Yes I reviewed the patient's radiology results. ITS Impressions Chest X-Ray 12/05/17 21:21 IMPRESSION: Findings suggestive of mild pulmonary interstitial edema. Suspected trace bilateral pleural effusions. Correlation with volume status is recommended. Left basilar pulmonary opacity may represent atelectasis and/or edema. Early pneumonia would not be excluded. D/ / 12/05/2017 21:56:49 Guicho Mueller MD / isaiah Interpreting Provider: Guicho Mueller MD - EKG Data EKG attestation: Yes I reviewed and interpreted this EKG. Rate: Reports: normal Rhythm: Reports: A.Fib, PVC's Interpretation: Reports: no acute changes
[2017-12-05 23:06] LABS: ABG Base Excess 11 mEq/L (-2 to 3); ABG HCO3 42 mEq/L (21-27); ABG Oxygen Saturation 88 % (95-98); ABG PCO2 78 mmHg (35-45); ABG PH 7.34 pH Units (7.32-7.45); ABG PO2 62 mmHg (85-104); ABG TCO2 44 mEq/L (20-26); Blood Gas Modality ASSIST CONTROL; Blood Gas Respiration Rate 12; Blood Gas VT 500 cc
[2017-12-05 23:32] LABS: Basophils % 0.2 %; Eosinophils # 0.1 K/mcL (0.0-0.6); Eosinophils % 0.7 %; Hematocrit 44.6 % (37.5-50.1); Hemoglobin 12.9 g/dL (12.9-16.9); Immature Granulocytes % 0.5 % (0-4); Lymphocytes # 1.6 K/mcL (0.6-4.6); Lymphocytes % 15.2 %; Mean Corpuscular HGB Conc 28.9 g/dL (31.6-35.5); Mean Corpuscular Hemoglobin 30.7 pg (28.0-33.3); Mean Corpuscular Volume 106.2 fL (83.0-100.0); Mean Platelet Volume 10.6 fL (9.4-12.4); Monocytes # 0.6 K/mcL (0.0-1.3); Monocytes % 5.4 %; Neutrophils # 8.4 K/mcL (1.6-8.9); Platelet Count 216 K/mcL (140-400); Red Cell Distribution Width 15.3 % (11.5-14.5)
[2017-12-05 23:34] LABS: INR 0.9; Prothrombin Time 10.5 Seconds (9.4-12.1)
[2017-12-05 23:55] LABS: BUN/Creatinine Ratio 14 (6-26); Blood Urea Nitrogen 14 mg/dL (6-20); Calcium 10.1 mg/dL (8.6-10.3); Carbon Dioxide 41 mEq/L (23-29); Chloride 95 mEq/L (98-107); Glucose 152 mg/dL (70-105); Osmolality,Calculated 295 (280-300); Potassium 4.6 mEq/L (3.5-5.1); Sodium 141 mEq/L (136-145); Troponin I 0.04 ng/mL (< 0.04); eGFR For African Americans > 60 (> 60); eGFR For Non-African Americans > 60 (> 60)
[2017-12-05 23:59] LABS: Macrocytosis Present (Not Present); Platelet Estimate Normal (Normal); Stomatocytes 1+ (Not Present)
[2017-12-06 00:01] LABS: Basophilic Stippling 1+ (Not Present); Hypochromasia Present (Not Present)
[2017-12-06 00:02] LABS: Polychromasia 1+ (Not Present)
[2017-12-06 00:04] LABS: Large Platelets Present (Not Present)
[2017-12-06 00:05] LABS: Anisocytosis 2+ (Not Present)
[2017-12-06] MEDS ORDERED: Furosemide 20 MG/2 ML VIAL IVP ONE ×2 (00:08→03:27)
[2017-12-06 00:46] LABS: ABG Base Excess 11 mEq/L (-2 to 3); ABG HCO3 37 mEq/L (21-27); ABG Oxygen Saturation 98 % (95-98); ABG PCO2 52 mmHg (35-45); ABG PH 7.46 pH Units (7.32-7.45); ABG PO2 101 mmHg (85-104); ABG TCO2 38 mEq/L (20-26); Blood Gas Modality ASSIST CONTROL; Blood Gas Respiration Rate 16; Blood Gas VT 500 cc
[2017-12-06] MEDS ORDERED: Naloxone 0.4 MG/ML INJ IVP PRN ×2 (01:42→03:27)
[2017-12-06] MEDS ORDERED: traMADol 50 MG TABLET PO PRN (03:27)
[2017-12-06] MEDS: Ipratropium/Albuterol Neb 3 ML IH SCH ×5 (04:11→22:34)
[2017-12-06 05:13] LABS: BUN/Creatinine Ratio 17 (6-26); Blood Urea Nitrogen 14 mg/dL (6-20); Calcium 9.5 mg/dL (8.6-10.3); Carbon Dioxide 34 mEq/L (23-29); Chloride 98 mEq/L (98-107); Glucose 94 mg/dL (70-105); Osmolality,Calculated 292 (280-300); Potassium 4.3 mEq/L (3.5-5.1); Sodium 141 mEq/L (136-145); eGFR For African Americans > 60 (> 60); eGFR For Non-African Americans > 60 (> 60)
[2017-12-06 05:24] LABS: Troponin I 0.04 ng/mL (< 0.04)
[2017-12-06] MEDS: Scopolamine Patch 1.5 MG PATCH.TD72 TD SCH ×2 (06:12→10:59)
[2017-12-06] MEDS: Gabapentin 400 MG CAPSULE PO SCH ×2 (08:58→14:45)
[2017-12-06] MEDS: Multivit/Ca/Min/Fe/FA 1 TAB TABLET PO SCH (08:58)
[2017-12-06] MEDS: Lactobacillus 1 EACH CAP.SPRINK PO SCH ×3 (08:58→21:03)
[2017-12-06] MEDS: Bumetanide 1 MG TABLET PO SCH (08:59)
[2017-12-06] MEDS: Aspirin 81 MG TAB.CHEW PO SCH (09:00)
[2017-12-06] MEDS ORDERED: Folic Acid 1 MG TABLET PO SCH (09:00)
[2017-12-06] MEDS: Sennosides 8.6 MG TABLET PO SCH ×3 (09:00→20:54)
[2017-12-06] MEDS: GUAR GUM PO SCH ×3 (09:03→21:03)
--- NOTE | 2017-12-06 14:23 | Internal Med History&Physical ---
Date of Encounter: 12/06/17 Time of Encounter: 12:25 Assessment and Plan (1) Hypoxia Current visit: Yes Status: Acute Likely secondary to COPD with possible superimposed pneumonia. Will order Levaquin with lactobacillus and recheck labs in a.m. (2) Macrocytic anemia Current visit: No Status: Acute Macrocytosis workup 11/18/2017 showed B12 284, folate> 22.3, and TSH 0.566. Observe (3) Edema Current visit: Yes Status: Acute BN peptide normal at 38. Decrease Neurontin. Qualifiers: Edema type: unspecified Qualified Code(s): R60.9 - Edema, unspecified (4) Hematoma of frontal scalp Current visit: No Status: Acute Continue to monitor. No intervention indicated at this time. Qualifiers: Encounter type: initial encounter Qualified Code(s): S00.03XA - Contusion of scalp, initial encounter Internal Medicine - H&P: HPI Chief complaint: Hypoxemia Admitted From: Emergency Dept Plans for Post Hospital Care: Home History of present illness: Mr. Stanton is a 47 year old male who was brought to emergency room from a local SNF after staff found him dyspneic and hypoxemic. The emergency room report states he was found approximately 8:30 PM with trach mask off and decreased responsiveness with saturation approximately 67%. Saturation improved while en route to the emergency room with bagging. [facility]. Past Med Surg Social Fam HX - Past Medical History Medical history: COPD, GERD, hyperlipidemia, hypertension, peripheral artery disease Additional medical history: dysphagia, thrombosis, acute resp failure, constipation, alcohol abuse, anemnia Psychiatric history: depression, other - Past Surgical History Additional surgical history: PEG tube site reversed - Social History Smoking Status: Former smoker Alcohol use: unknown Drug use: unknown Internal Medicine - H&P: Meds Atorvastatin [Lipitor] 80 mg PO HS 11/17/17 [History] Escitalopram Oxalate 5 mg PO DAILY 11/17/17 [History] Folic Acid 1 mg PO DAILY 11/17/17 [History] Ipratropium/Albuterol Neb [Duoneb] 3 ml IH Q6HR 11/17/17 [History] Tramadol HCl [Ultram] 50 mg PO TID PRN 11/17/17 [History] Aspirin 81 mg PO DAILY tab.chew 07/12/18 [Rx] Bumetanide [Bumex] 0.5 mg PO DAILY 365 Days tablet 11/18/17 [Rx] Gabapentin [Neurontin] 400 mg PO TID 30 Days #90 capsule 11/18/17 [Rx] Lactobacillus [Culturelle] 1 each PO BID 3 Days cap.sprink 11/18/17 [Rx] Docusate [Colace] 100 mg PO TID 12/05/17 [History] Guar Gum [Nutrisource Fiber] 205 gm PO TID 12/05/17 [History] Multivit-Min/Iron Fum/Folic AC [Plxwr-Txkriax-Wgdbrpow Tablet] 1 each PO DAILY 12/05/17 [History] Scopolamine Patch [Transderm-Scop] 1.5 mg TD Q72H 12/05/17 [History] Sennosides [Senna] 8.6 mg PO TID 12/05/17 [History] 3 Allergy/AdvReac Type Severity Reaction Status Date / Time No Known Allergies Allergy Verified 12/05/17 21:39 All Systems PM: A 10-system review of systems was performed and is negative for pertinent findings except as documented above in the HPI. Review of systems: Gen.: He states his weight has been stable the past few months Cardiovascular: He reports some peripheral edema occasionally but is unaware of a definitive diagnosis of heart failure. He denies hypertension LA DVT or pulmonary embolus Respiratory: He states he smoked from approximately age [age] up to 2 packs per day. He has a diagnosis of COPD. He has had a tracheostomy since approximately 2013. He has been ordered ventilator use at bedtime but states he does not always use this stating he feels a choking sensation when attached to the ventilator. GI: Denies disorders of his liver gallbladder or exocrine pancreas : He denies hematuria dysuria or kidney stones. Neurologic: He denies large distribution strokes or seizures. Endocrine: He denies diabetes thyroid disease or hyperlipidemia Hematology/oncology: Denies blood disorders cancers or anemia. He was unaware he had macrocytosis. Psychiatric: He has anxiety and depression but denies other mental health diagnoses Musk skeletal: He denies arthritis gout or other bone joint or muscle disorders. - Constitutional Vitals: Temp Pulse Resp BP Pulse Ox 99.0 F 90 16 144/83 93 12/06/17 11:05 12/06/17 11:05 12/06/17 11:05 12/06/17 11:05 12/06/17 11:05 Exam: Gen.: He is a well-developed well-nourished male resting comfortably in bed HEENT: Head shows hematoma in the right anterolateral forehead area. He has periorbital ecchymosis bilaterally with a few shallow lacerations. Reports had a fall several days ago with long term. Eyes: EOMI. There is no scleral icterus. Mouth: Mucosa is moist. Neck: Tracheostomy is present with oxygen by trach mask being used at present. Heart: Regular without murmurs gallops or ectopics Lungs: No wheezes or crackles are heard. Abdomen: Soft and nontender. No masses or guarding are noted. Extremities: There is no cyanosis noted. He has 1+ edema of the dorsum of the feet and lower anterior shins bilaterally. Dorsalis pedis and posterior tibial pulses are nonpalpable. Neurologic: Mental status: He cannot phonate because of tracheostomy. He answers questions appropriately by mouthing the answers for lipreading. Cranial nerves: Smile is symmetric. Forehead wrinkles bilaterally. Tongue protrudes midline. EOMI. Motor: There is no pronator drift. Cerebellar: Finger to nose is intact bilaterally. Skin: Warm and dry Internal Med - H&P Results - Labs CBC & Chem 7: 12/05/17 23:10 12/06/17 04:25 Labs: BMP 12/06/17 04:25 Sodium 141 Potassium 4.3 Chloride 98 Carbon Dioxide 34 H BUN 14 Creatinine 0.82 Glucose 94 Calcium 9.5 Cardiac Enzymes 12/06/17 Range/Units 04:25 Troponin I 0.04 H* (< 0.04) ng/mL
[2017-12-06] MEDS: Gabapentin 300 MG CAPSULE PO SCH ×2 (14:59→20:53)
[2017-12-06] MEDS: levoFLOXacin 500 MG TABLET PO SCH (15:02)
--- NOTE | 2017-12-06 17:21 | Electrocardiograph Report ---
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
[2017-12-07] MEDS: Ipratropium/Albuterol Neb 3 ML IH SCH ×2 (04:11→09:08)
[2017-12-07 06:24] LABS: Basophils % 0.3 %; Eosinophils # 0.2 K/mcL (0.0-0.6); Eosinophils % 2.1 %; Hematocrit 39.3 % (37.5-50.1); Immature Granulocytes % 0.3 % (0-4); Lymphocytes # 2.4 K/mcL (0.6-4.6); Lymphocytes % 34.2 %; Mean Corpuscular Hemoglobin 30.1 pg (28.0-33.3); Mean Corpuscular Volume 107.4 fL (83.0-100.0); Mean Platelet Volume 10.5 fL (9.4-12.4); Monocytes # 0.5 K/mcL (0.0-1.3); Monocytes % 7.2 %; Nucleated Red Blood Cells 0.3 /100 WBC (0); Platelet Count 196 K/mcL (140-400); Red Blood Count 3.66 M/mcL (4.19-5.50); Red Cell Distribution Width 15.4 % (11.5-14.5); Segmented Neutrophils % 55.9 %
[2017-12-07 07:20] LABS: BUN/Creatinine Ratio 19 (6-26); Blood Urea Nitrogen 12 mg/dL (6-20); Calcium 9.3 mg/dL (8.6-10.3); Carbon Dioxide 41 mEq/L (23-29); Chloride 100 mEq/L (98-107); Glucose 106 mg/dL (70-105); Osmolality,Calculated 298 (280-300); Potassium 4.9 mEq/L (3.5-5.1); Sodium 144 mEq/L (136-145); eGFR For African Americans > 60 (> 60); eGFR For Non-African Americans > 60 (> 60)
[2017-12-07 08:02] LABS: Anisocytosis 1+ (Not Present); Polychromasia 1+ (Not Present); Stomatocytes 1+ (Not Present)
[2017-12-07 08:04] LABS: Basophilic Stippling 1+ (Not Present); Macrocytosis Present (Not Present)
[2017-12-07 08:05] LABS: Hypochromasia Present (Not Present)
[2017-12-07] MEDS: Bumetanide 1 MG TABLET PO SCH (09:07)
[2017-12-07] MEDS: Sennosides 8.6 MG TABLET PO SCH (09:07)
[2017-12-07] MEDS: Gabapentin 300 MG CAPSULE PO SCH (09:08)
[2017-12-07] MEDS: levoFLOXacin 500 MG TABLET PO SCH (09:08)
[2017-12-07] MEDS: Lactobacillus 1 EACH CAP.SPRINK PO SCH ×2 (09:09→09:10)
[2017-12-07] MEDS: Multivit/Ca/Min/Fe/FA 1 TAB TABLET PO SCH (09:09)
[2017-12-07] MEDS: Aspirin 81 MG TAB.CHEW PO SCH (09:09)
[2017-12-07] MEDS: GUAR GUM PO SCH (09:25)
[2017-12-07 10:24] VITALS: BP 110/57
--- NOTE | 2017-12-07 11:12 | Discharge Summary ---
Date of Encounter: 12/07/17 Time of Encounter: 11:00 - Discharge Diagnosis (1) Pneumonia Priority: Primary Status: Acute Qualifiers: Pneumonia type: due to unspecified organism Laterality: left Lung location: lower lobe of lung Qualified Code(s): J18.1 - Lobar pneumonia, unspecified organism (2) Hypoxia Priority: Secondary Status: Acute (3) Macrocytic anemia Priority: Secondary Status: Acute (4) Edema Priority: Secondary Status: Acute Qualifiers: Edema type: unspecified Qualified Code(s): R60.9 - Edema, unspecified (5) Hematoma of frontal scalp Priority: Secondary Status: Acute Qualifiers: Encounter type: initial encounter Qualified Code(s): S00.03XA - Contusion of scalp, initial encounter Hospital course: Mr. Stanton is a 47 year old male who was brought to emergency room from a local [facility] after staff found him dyspneic and hypoxemic. The emergency room report states he was found approximately 8:30 PM with trach mask off and decreased responsiveness with saturation approximately 67%. Saturation improved while en route to the emergency room with bagging. He was admitted to [facility] for ongoing care needs. Initial orders were written by emergency room physician. I saw him on December 06 and performed the history and physical. He was started on Levaquin empirically for possible left lower lobe pneumonia. Lactobacillus was also given. He had clinical improvement with WBC decreasing to 7.1 with less left shift seen on differential. Oxygen saturation remained satisfactory. On December 07 he was stable for discharge back to the [facility] for ongoing care needs. He will continue with antibiotic and probiotic for 3 additional days at discharge. We will continue oxygen as previously ordered. He will follow with his PCP Dr. Thomas/ Kandace Cunningham CNP. - Time Spent with Patient Total time spent providing and/or coordinating discharge services: - Discharge Medications Home Medications: Atorvastatin [Lipitor] 80 mg PO HS 11/17/17 [History] Escitalopram Oxalate 5 mg PO DAILY 11/17/17 [History] Folic Acid 1 mg PO DAILY 11/17/17 [History] Ipratropium/Albuterol Neb [Duoneb] 3 ml IH Q6HR 11/17/17 [History] Tramadol HCl [Ultram] 50 mg PO TID PRN 11/17/17 [History] Aspirin 81 mg PO DAILY tab.chew 11/18/17 [Rx] Bumetanide [Bumex] 0.5 mg PO DAILY 365 Days tablet 11/18/17 [Rx] Gabapentin [Neurontin] 400 mg PO TID 30 Days #90 capsule 11/18/17 [Rx] Lactobacillus [Culturelle] 1 each PO BID 3 Days cap.sprink 11/18/17 [Rx] Docusate [Colace] 100 mg PO TID 12/05/17 [History] Guar Gum [Nutrisource Fiber] 205 gm PO TID 12/05/17 [History] Multivit-Min/Iron Fum/Folic AC [Tpdho-Esnaydt-Xkcclwox Tablet] 1 each PO DAILY 12/05/17 [History] Scopolamine Patch [Transderm-Scop] 1.5 mg TD Q72H 12/05/17 [History] Sennosides [Senna] 8.6 mg PO TID 12/05/17 [History] levoFLOXacin [Levaquin] 500 mg PO DAILY 3 Days tablet 12/07/17 [Rx] Allergies/Adverse Reactions: 3 Allergy/AdvReac Type Severity Reaction Status Date / Time No Known Allergies Allergy Verified 12/05/17 21:39 Date of admission: 12/06/17 15:14 Primary care physician: Trino Thomas MD - Constitutional Vitals: Temp Pulse Resp BP Pulse Ox 98.5 F 78 18 110/57 100 12/07/17 10:22 12/07/17 10:22 12/07/17 10:22 12/07/17 10:22 12/07/17 10:22 - Patient Status Disposition: Transfer SNF Condition: Good - Discharge Instructions Follow Up With: Trino Thomas MD [Primary Care Provider] - 1 week - Diet and Activity Activity: resume usual activities as tolerated, wear oxygen at all times Diet: advance to your usual diet
== END 2017-12-07 13:05 | DRG 208 ==
LOC: EMEROOPIK 21:09 → INPPIK 21:09
PROVIDERS: ADMIT Internal Medicine; ATTEND Internal Medicine